=== PATIENT | male | born 1945 | race Caucasian/White ===

== ENCOUNTER 2016-11-03 09:30 | Inpatient (IN) | payer BC, MEDICARE ==
[~2016-11-03] VITALS: Ht 177.8 cm; Wt 73.5 kg
[2016-11-03] VITALS (13 sets, daily range): BP systolic 102–151; BP diastolic 56–88
--- NOTE | ~2016-11-03 | CON ---
[place], [place] REPORT OF CONSULTATION NAME: KRZYSZTOF CAT UNIT #: [id number] ROOM: [facility] DOCTOR: SAMMY BOWMAN MD,VERONICA BIRTHDATE: [birth year] DOS: 11/03/2016 PULMONARY CONSULTATION The patient was transferred to another facility prior to being assessed. The patient was not physically seen. VERONICA CHRISTIANSON MD CM:CONSTR:REPORT OF CONSULTATION [id number] 11/05/16 0412 interface
[2016-11-03 09:58] LABS: HEMATOCRIT 35.1 % (42.0-52.0); HEMOGLOBIN 10.7 g/dl (14.0-18.0); MEAN CELL VOLUME 113.2 fl (80.0-94.0); MEAN CORPUSCULAR HGB 34.5 pg (27.0-31.0); MEAN CORPUSCULAR HGB CONC 30.5 g/dl (33.0-37.0); MEAN PLATELET VOLUME 10.6 fl (9.6-12.3); NUCLEATED RED BLOOD CELL 0.1 % (0.0-0.0); PLATELET COUNT AUTOMATED 196 10*3/uL (130-400); RED CELL DISTRI WIDTH 15.4 % (0-14.5); WHITE BLOOD COUNT 17.1 10*3/uL (4.8-10.8)
[2016-11-03 10:22] LABS: LYMPHOCYTE # 2.6 10*3/uL (1.3-4.4); MONOCYTE # 0.7 10*3/uL (0.1-1.0); NEUTROPHIL # 13.9 10*3/uL (2.3-7.9); NEUTROPHILS 81 % (47-73); PLATELET SUFFICIENCY NORMAL (NORMAL); TOTAL CELLS COUNTED 100 #CELLS
[2016-11-03 10:27] LABS: BUN 16 mg/dl (7-24); CARBON DIOXIDE 39 mmol/L (21-32); CHLORIDE 99 mmol/L (98-107); EST GLOM FILT AFRICAN AMERICAN > 60 ml/min; GLUCOSE 265 mg/dL (65-99); POTASSIUM 4.5 mmol/L (3.5-5.1); SODIUM 143 mmol/L (136-145); TROPONIN I 0.019 ng/ml (<0.045)
[2016-11-03] MEDS ORDERED: TAMSULOSIN HCL0.4 MG PO (11:42)
[2016-11-03] MEDS ORDERED: PRAVACHOL40 MG PO (11:42)
[2016-11-03] MEDS ORDERED: RANEXA500 M1 PO (11:43)
[2016-11-03] MEDS ORDERED: DALI500T PO (11:43)
[2016-11-03] MEDS ORDERED: PREDNISONE10 MG PO (11:43)
[2016-11-03] MEDS ORDERED: ASACOL HD800 M1 PO (11:43)
[2016-11-03] MEDS ORDERED: LASIX20 MG PO (11:43)
[2016-11-03] MEDS ORDERED: DILTIAZEM 24HR180 MG PO (11:44)
[2016-11-03] MEDS ORDERED: MERCAPTOPURINE50 M1 PO (11:44)
[2016-11-03] MEDS ORDERED: MULTAQ400 MG PO (11:44)
[2016-11-03] MEDS ORDERED: K-TAB20 MEQ PO (11:45)
[2016-11-03] MEDS ORDERED: MIRTAZAPINE15 M1 PO (11:47)
[2016-11-03] MEDS ORDERED: BREO ELLIPTA 11 EACH IH (11:47)
[2016-11-03] MEDS ORDERED: COMBIVENT RESPIM4 GM INH (11:47)
[2016-11-03] MEDS ORDERED: ASPIRIN CHEWABL81 MG PO (11:48)
[2016-11-03] MEDS ORDERED: VENTOLIN,PR2 MG/5 ML PO (11:48)
[2016-11-03 12:32] LABS: CKMB 1.7 ng/ml (0.5-3.6); TROPONIN I 0.036 ng/ml (<0.045)
[2016-11-03] MEDS ORDERED: MIRALAX17 GM PO (15:05)
[2016-11-03] MEDS ORDERED: METHYLPREDNI40 MG/M1 IV (16:15)
[2016-11-03] MEDS ORDERED: LEVAQUIN750 M1 IV (16:15)
[2016-11-03] MEDS ORDERED: DUONEB 3 MG/3 ML3 M1 INH (16:20)
== END 2016-11-03 17:55 | disposition short-term general hospital (02) | DRG 871 ==
LOC: ED 09:30 → EDHOLD 11:40 → 4E 11:40 → ICCU 12:17
PROVIDERS: Emergency Medicine; Student in an Organized Health Care Education/Training Program
DX: A41.9 Sepsis, unspecified organism (principal); J18.9 Pneumonia, unspecified organism; J96.01 Acute respiratory failure with hypoxia; I50.9 Heart failure, unspecified; K50.919 Crohn's disease, unspecified, with unspecified complications; D53.9 Nutritional anemia, unspecified; I48.0 Paroxysmal atrial fibrillation; J43.9 Emphysema, unspecified; J93.9 Pneumothorax, unspecified; R73.9 Hyperglycemia, unspecified; N40.0 Benign prostatic hyperplasia without lower urinary tract symptoms; Z90.49 Acquired absence of other specified parts of digestive tract; Z87.891 Personal history of nicotine dependence; Z82.3 Family history of stroke; Z79.82 Long term (current) use of aspirin; Z79.899 Other long term (current) drug therapy